=== PATIENT | male | born 1985 | race Caucasian/White ===

== ENCOUNTER 2024-09-18 15:02 | Emergency (ER) | payer BC ==
[2024-09-18 15:58] VITALS: RESP 18; TEMP 97.1
[2024-09-18] MEDS ORDERED: TORAdol 30 mg Injection ONE (16:01)
[2024-09-18] MEDS ORDERED: Zofran 4 MG/2 ML VIAL ONE (16:01)
[2024-09-18 16:03] VITALS: PULSE 98
[2024-09-18] MEDS: Zofran 4 MG/2 ML VIAL IV ONE (16:03)
[2024-09-18] MEDS: TORAdol 30 mg Injection IV ONE (16:04)
[2024-09-18 16:11] LABS: Absolute Neutrophil Ct (ANC) 1.28 x10^3/uL (1.78-5.38); BASOPHIL % 0.3 % (0.2-1.2); Basophil (Absolute #) 0.02 x10^3/uL (0.01-0.08); Eosinophil % 3.6 % (0.8-7.0); Eosinophil (Absolute #) 0.24 x10^3/uL (0.04-0.54); Hematocrit 43.1 % (40.1-51.0); Hemoglobin 14.4 g/dL (13.7-17.5); IMMATURE GRAN # 0.05 x10^3u/L (0.001-0.031); IMMATURE GRAN % 0.7 % (0.001-0.429); Lymphocyte (Absolute #) 1.28 x10^3/uL (1.32-3.57); Mean Cell Volume 90.5 fL (79.0-92.2); Mean Corpuscular Hemoglobin 30.3 pg (25.7-32.2); Mean Corpuscular Hgb Concent. 33.4 g/dL (32.3-36.5); Mean Platelet Volume 9.2 fL (9.4-12.4); Monocyte (Absolute #) 3.85 x10^3/uL (0.30-0.82); Monocytes % 57.3 % (5.3-12.2); Neutrophil % 19.1 % (34.0-67.9); Platelet Count 81 x10^3/uL (163-337); Red Blood Count 4.76 x10^6/uL (4.63-6.08); Red Cell Distribution Width 13.4 % (11.6-14.4); White Blood Count 6.7 x10^3/uL (4.23-9.07)
[2024-09-18 16:24] LABS: ALBUMIN 4.4 g/dL (3.5-5.0); BILIRUBIN,TOTAL 1.9 mg/dL (0.2-1.3); Calcium 9.3 mg/dL (8.4-10.2); Creatinine 1 1.17 mg/dL (0.66-1.25); EST GLOMERULAR FILTRATION RATE 80.8 ML/MIN; Total Protein 7.8 g/dL (6.3-8.2)
--- NOTE | 2024-09-18 16:55 | ERPHSYRPT ---
- History of Present Illness Time Seen by Provider: 09/18/24 15:33 Historian: patient Exam Limitations: no limitations Patient Subjective Stated Complaint: PT. STATES,"I WAS IN THE HOSPITAL 2 WEEKS AGO FOR PERICARDIOCENTESIS AND MY BOWELS HAVN'T MOVED SINCE. IM HAVING ABDOMINAL PAIN, IM NOT PASSING GAS, I FEEL MISERABLE. I HAD A CAT SCAN HERE LAST WEEK AND IT SAID I AM FULL OF STOOL. I HAVE TRIED STOOL SOFTENERS, SUPPOSITORIES AND 2 ENEMAS TODAY. THERE WAS NO STOOL PRESENT DURING THE SUPPOSITORY OR ENEMA INSERTION" Triage Nursing Assessment: PT. AMBULATED TO ROOM WITHOUT DIFF., SKIN P/W/D, RESP EVEN UNLABORED, NO EDEMA, ABDOMEN ROUND DISTENDED, HYPOACTIVE BOWEL SOUNDS. Physician History: 39 years old male with history of pericardial effusion needing pericardiocentesis couple of weeks ago at [facility] presented to the ER with complaints of left-sided abdominal pain with constipation. Patient reports moderate intensity dull aching to sharp shooting pain which comes in waves, no aggravating or relieving factors. Has been taking laxative and stool softener with no relief. Patient does report having bowel movement almost every day but not good enough like his usual bowel movements. No swelling in lower extremities. Has some abdominal distention. No fever or chills reported. Has chronic chest tightness and shortness of breath which is not any worse than usual. Hx Tetanus, Diphtheria Vaccination/Date Given: No Hx Influenza Vaccination/Date Given: No Hx Pneumococcal Vaccination/Date Given: No Immunizations Up to Date: No Travel Risk - International Travel Have you traveled outside of the country in past 3 weeks: No - Emerging Infectious Disease Are you exhibiting symptoms associated with any current EIDs: No - Review of Systems Constitutional: Fatigue Eyes: No Symptoms Ears, Nose, & Throat: No Symptoms Respiratory: Dyspnea Cardiac: No Symptoms Abdominal/Gastrointestinal: Abdominal Pain, Constipation Genitourinary Symptoms: No Symptoms Musculoskeletal: No Symptoms Skin: No Symptoms Neurological: No Symptoms Endocrine: No Symptoms Hematologic/Lymphatic: No Symptoms - Past Medical History Pertinent Past Medical History: No Neurological History: No Pertinent History ENT History: No Pertinent History Cardiac History: No Pertinent History Respiratory History: No Pertinent History Endocrine Medical History: Hypothyroidism Musculoskeletal History: No Pertinent History GI Medical History: No Pertinent History History: No Pertinent History Psycho-Social History: No Pertinent History Male Reproductive Disorders: No Pertinent History Other Medical History: RECENT PERICARDITIS, ACUTE KIDNEY INJURY - Past Surgical History Past Surgical History: No - Social History Smoking Status: Never smoker Exposure to second hand smoke: No Drug Use: none - Social Determinants of Health Will the patient participate in the screening: Declined to provide - Nursing Vital Signs Nursing Vital Signs: Initial Vital Signs Temperature 97.1 F 09/18/24 15:03 Pulse Rate 95 H 09/18/24 15:03 Respiratory Rate 18 09/18/24 15:03 Blood Pressure 107/78 09/18/24 15:03 O2 Sat by Pulse Oximetry 94 L 09/18/24 15:03 Pain Scale Pain Intensity 8 - Physical Exam General Appearance: no apparent distress Eye Exam: PERRL/EOMI Ears, Nose, Throat Exam: normal ENT inspection Neck Exam: normal inspection, full range of motion Respiratory Exam: normal breath sounds, lungs clear Cardiovascular Exam: regular rate/rhythm, normal heart sounds Gastrointestinal/Abdomen Exam: soft, normal bowel sounds, tenderness (Left side abdomen with minimal guarding but no rebound tenderness) Back Exam: normal inspection, normal range of motion Extremity Exam: normal inspection, normal range of motion Neurologic Exam: alert, oriented x 3, cooperative Skin Exam: normal color SpO2 Interpretation: normal SpO2: 93 O2 Delivery: Room Air Ordered Tests: Active Orders 24 hr Category Date Time Status IV Insertion STAT Care 09/18/24 15:49 Active NPO (ED) STAT Care 09/18/24 15:49 Active ABDOMEN AND PELVIS W CONTRAST [CT] Stat Exams 09/18/24 15:49 Taken CBC W DIFF Stat Lab 09/18/24 16:00 Results CMP Stat Lab 09/18/24 16:00 Completed LIPASE Stat Lab 09/18/24 16:00 Completed Lactic Acid Stat Lab 09/18/24 16:02 Completed Pathologist Review Stat Lab 09/18/24 16:00 Results UA W/RFX UR CULTURE Stat Lab 09/18/24 15:49 Ordered Medication Summary Discontinued Medications Generic Name Dose Route Start Last Admin Trade Name Freq PRN Reason Stop Dose Admin Ketorolac Tromethamine 15 mg 09/18/24 15:49 09/18/24 16:04 Ketorolac Tromethamine 30 Mg/Ml Inj IV 09/18/24 15:50 15 mg STAT ONE Administration Ketorolac Tromethamine Confirm 09/18/24 16:01 Ketorolac Tromethamine 30 Mg/Ml Inj Administered 09/18/24 16:02 Dose 30 mg .ROUTE .STK-MED ONE Ondansetron HCl 4 mg 09/18/24 15:49 09/18/24 16:03 Ondansetron Hcl 4 Mg/2 Ml Vial IV 09/18/24 15:50 4 mg STAT ONE Administration Ondansetron HCl Confirm 09/18/24 16:01 Ondansetron Hcl 4 Mg/2 Ml Vial Administered 09/18/24 16:02 Dose 4 mg .ROUTE .STK-MED ONE Lab/Rad Data: Laboratory Result Diagrams 09/18/24 16:00 09/18/24 16:00 Laboratory Results 09/18/24 09/18/24 09/18/24 Range/Units 16:02 16:00 16:00 WBC 6.7 (4.23-9.07) x10^3/uL RBC 4.76 (4.63-6.08) x10^6/uL Hgb 14.4 (13.7-17.5) g/dL Hct 43.1 (40.1-51.0) % MCV 90.5 (79.0-92.2) fL MCH 30.3 (25.7-32.2) pg MCHC 33.4 (32.3-36.5) g/dL RDW 13.4 (11.6-14.4) % Plt Count 81 L (163-337) x10^3/uL MPV 9.2 L (9.4-12.4) fL Gran % 19.1 L (34.0-67.9) % Immature Gran % (Auto) 0.7 H (0.001-0.429) % Nucleat RBC Rel Count 0.0 (0.00-0.2) % Eos # (Auto) 0.24 (0.04-0.54) x10^3/uL Immature Gran # (Auto) 0.05 H (0.001-0.031) x10^3u/L Absolute Lymphs (auto) 1.28 L (1.32-3.57) x10^3/uL Absolute Monos (auto) 3.85 H (0.30-0.82) x10^3/uL Absolute Nucleated RBC 0.00 (0.00-0.012) x10^3u/L Lymphocytes % 19.0 L (21.8-53.1) % Monocytes % 57.3 H (5.3-12.2) % Eosinophils % 3.6 (0.8-7.0) % Basophils % 0.3 (0.2-1.2) % Absolute Granulocytes 1.28 L (1.78-5.38) x10^3/uL Basophils # 0.02 (0.01-0.08) x10^3/uL Smear Path Review Pending Sodium 138 (135-145) mmol/L Potassium 4.0 (3.5-5.1) mmol/L Chloride 98 (98-107) mmol/L Carbon Dioxide 27 (22-30) mmol/L Anion Gap 17.0 H (5-15) MEQ/L BUN 15 (9-20) mg/dL Creatinine 1.17 (0.66-1.25) mg/dL Estimated GFR 80.8 ML/MIN Glucose 109 H (74-106) mg/dL Lactic Acid 1.4 (0.4-2.0) Calcium 9.3 (8.4-10.2) mg/dL Total Bilirubin 1.90 H (0.2-1.3) mg/dL AST 25 (17-59) U/L ALT 22 (0-50) U/L Alkaline Phosphatase 61 (38-126) U/L Serum Total Protein 7.8 (6.3-8.2) g/dL Albumin 4.4 (3.5-5.0) g/dL Lipase 39 (23-300) U/L Slides for Path Review YES - Progress Progress: pain not gone completely Progress Note: 09/18/24 18:56 Differential diagnosis includes but not limited to: Intestinal obstruction/constipation/colitis/diverticulitis/perforation/ureteral stones/dehydration/renal failure 39 years old is evaluated in the ER for left-sided abdominal pain with questionable constipation for which she has been taking [id number] laxative and took 2 enemas with no significant relief although patient is having small bowel movements almost every day. Patient has some tenderness on the left side, blood pressure is on the lower side, would hold off on pain medications. Workup showed normal white count, chemistries fairly unremarkable and I have obtained CT abdomen pelvis which is negative for any acute intra-abdominal pelvic findings when compared to CT 2 days ago. Patient does not have excessive stool load/obstruction. Do not know the exact cause of his pain but have ruled out all the major emergencies, recommended symptomatic/supportive care and outpatient follow-up with primary care and may need referral for GI for further evaluation if symptoms does not resolve. Discussed signs symptoms of worsening needing return to ER which patient/family seem understanding. Complexity of problems addressed: Acute moderate Complexity of data reviewed/analyzed: Moderate Risk of complication: Low risk Counseled pt/family regarding: lab results, diagnosis, need for follow-up, rad results Medical Desision Making - Independent Historian Additional History obtained from: Spouse - Diagnostic Testing Diagnostic test were ordered, analyzed, and reviewed by me: Yes Radiological Interpretation: Reviewed by me - Risk of complications Low Risk: Low risk of morbidity from additional dx testing or treatment - Departure Departure Disposition: Home Clinical Impression: Left sided abdominal pain, Constipation Condition: Stable Critical Care Time: No Referrals: TIFFANIE MARTINO [Primary Care Provider, PULMONARY MEDICINE] - Follow up with PCP 1 day Instructions: Severe Abdominal Pain, Adult (DC) Additional Instructions: Take Tylenol/ibuprofen as needed. Take daily MiraLAX and stool softener. Follow-up with primary care for reevaluation and may need referral for GI for further evaluation with colonoscopy. Return to ER for intractable pain/vomiting or if develop fever chills etc.
[2024-09-18 16:59] LABS: Slide Review 1 YES
[2024-09-18 18:49] VITALS: BP 97/74
[2024-09-18 18:59] VITALS: O2SAT 93
--- NOTE | 2024-09-19 08:41 | XRAY ---
Indication: Left-sided pain. Multiple contiguous axial images obtained through the abdomen and pelvis using 80 cc Isovue 370 contrast. Comparison: September 16, 2024 Lung bases again demonstrates incompletely visualized moderate left and tiny right effusions with subsegmental atelectasis/scarring. Heart not enlarged. Noncontrasted stomach and bowel loops nonobstructed again with normal appendix. Previous diffuse fecal stasis improved with fecal debris predominantly in ascending colon. Grossly stable hepatosplenomegaly. No free fluid/air. Remaining liver, gallbladder, pancreas, spleen, adrenal glands, kidneys, ureters, bladder, and aorta are unremarkable. No pathologic retroperitoneal lymphadenopathy. Impression: Stable moderate left/tiny right effusions with atelectasis/scarring. Stable hepatosplenomegaly. No new/acute findings.
== END 2024-09-18 19:09 | disposition home or self-care (01) ==
LOC: ED 15:02
DX: K59.00 Constipation, unspecified (principal); R10.12 Left upper quadrant pain; R10.32 Left lower quadrant pain
CPT/HCPCS: 36415; 74177; 80053; 83605; 83690; 85025; 96374; 96375; 99284; 99285; J1885; J2405